=== PATIENT | male | born 1990 | race African-American/Black ===

== ENCOUNTER 2017-03-25 14:44 | Emergency (ER) | payer SELFPAY ==
[~2017-03-25] VITALS: Ht 188 cm; Wt 75.0 kg
[2017-03-25 14:45] VITALS: BP 132/61; PULSE 97; RESP 15; TEMP 97.8; O2SAT 100
--- NOTE | 2017-03-25 16:04 | PD ---
HPI Chief Complaint: Complaint Time Seen by Provider: 16:00 Travel History International Travel<30 days: No Contact w/Intl Traveler<30days: No Traveled to known affect area: No History of Present Illness HPI 27-year-old Afro-[place] male presents to the emergency Department with penile discharge since last night. Patient states he was recently treated at the [facility] department for Trichomonas which he had from his girlfriend. Patient was treated on Monday with 1000 mg of Flagyl by mouth. He states he's continued to have dysuria and discharge. He denies flank pain, testicular pain , rash, nausea, vomiting, or other symptoms. Patient is allergic to shellfish. PFSH Past Medical History Diminished Hearing: No Social History Alcohol Use: No Tobacco Use: No Allergies-Medications (Allergen,Severity, Reaction): Coded Allergies: shellfish derived (Verified Allergy, Unknown, Anaphylaxis, 03/25/17) Review of Systems Except as stated in HPI: all other systems reviewed are Neg General / Constitutional: No: Fever Eyes: No: Visual changes HENT: No: Headaches Cardiovascular: No: Chest Pain or Discomfort Respiratory: No: Shortness of Breath Gastrointestinal: No: Abdominal Pain Genitourinary: Positive: Dysuria, Discharge, No: Flank Pain Musculoskeletal: No: Pain Skin: No Rash Neurologic: No: Weakness Psychiatric: No: Depression Endocrine: No: Polydipsia Hematologic/Lymphatic: No: Easy Bruising Physical Exam Narrative GENERAL: Patient appears no acute distress. SKIN: Warm and dry. Normal color. Normal turgor. HEAD: Atraumatic. Normocephalic. EYES: Pupils equal and round. No scleral icterus. No injection or drainage. ENT: No nasal bleeding or discharge. Mucous membranes pink and moist. Pharynx is clear. Airway is patent. NECK: Trachea midline. Supple. CARDIOVASCULAR: Regular rate and rhythm. RESPIRATORY: No accessory muscle use. Clear to auscultation. Breath sounds equal bilaterally. GASTROINTESTINAL: Abdomen soft, non-tender, nondistended. Hepatic and splenic margins not palpable. No CVA tenderness. Genital exam shows no rash, no tenderness of the testicles or penile shaft. MUSCULOSKELETAL: Extremities without clubbing, cyanosis, or edema. No obvious deformities. NEUROLOGICAL: Awake and alert. No obvious cranial nerve deficits. Motor grossly within normal limits. Five out of 5 muscle strength in the arms and legs. Normal speech. PSYCHIATRIC: Appropriate mood and affect; insight and judgment normal. Data Data Last Documented VS Vital Signs Date Time Temp Pulse Resp B/P (MAP) Pulse Ox O2 Delivery O2 Flow Rate FiO2 03/25/17 14:45 97.8 97 15 132/61 (84) 100 Orders Orders Urinalysis - C+S If Indicated (03/25/17 16:04) Gc And Chlamydia Pcr (03/25/17 16:04) Azithromycin (Zithromax) (03/25/17 16:15) Ceftriaxone Inj (Rocephin Inj) (03/25/17 16:15) Sodium Chloride 0.9% Flush (Ns Flush) (03/25/17 16:15) Lidocaine 1% Inj (50 Ml) (Xylocaine 1% I (03/25/17 16:15) MDM Medical Decision Making Medical Screen Exam Complete: Yes Emergency Medical Condition: Yes Medical Record Reviewed: Yes Differential Diagnosis Exposure to STD. Dysuria. Urinary tract infection. Prostatitis. STD. Narrative Course Patient is medically stable at time of exam. Urinalysis and urine GC chlamydia is ordered. Patient is given 1000 mg Rocephin IM as well as 1000 mg of azithromycin by mouth. Patient will be treated with metronidazole 500 mg 3 times a day 7 days. Patient is to follow-up with his primary care or health department to ensure clearance in the next week. Patient is advised to use safe sex practices and make sure his partners treated and cleared As well. Diagnosis Primary Impression: Penile discharge, without blood Referrals: [facility] Dept. Patient Instructions: Condom Use (DC), General Instructions Additional Instructions: Urinalysis and urine GC chlamydia is ordered. Patient is given 1000 mg Rocephin IM as well as 1000 mg of azithromycin by mouth. Patient will be treated with metronidazole 500 mg 3 times a day 7 days. Patient is to follow-up with his primary care or health department to ensure clearance in the next week. Patient is advised to use safe sex practices and make sure his partners treated and cleared As well. Med/Other Pt SpecificInfo: Prescription(s) given Disposition: 01 DISCHARGE HOME Condition: Stable Don Lopez Mar 25, 2017 16:04
[2017-03-25] MEDS ORDERED: METR500T10 PO (16:14)
[2017-03-25] MEDS ORDERED: SODIUM CHLORIDE 0.9% FLUSH 10 ML FLUSH IVF PRN (16:15)
[2017-03-25] MEDS ORDERED: LIDOCAINE HCL 1% 50 ML VIAL XX ONE (16:15)
[2017-03-25] MEDS ORDERED: AZITHROMYCIN 250 MG TAB PO ONE (16:15)
[2017-03-25 16:37] LABS: BLOOD, URINE NEG (NEG); CALCIUM OXALATE CRYSTALS,URINE MANY /hpf; COMMENT (UR) CULT NOT INDICATED; CULTURE IF INDICATED CULT NOT INDICATED; GLUCOSE,URINE NEG (NEG); KETONE, URINE TRACE mg/dL (NEG); MUCUS URINE MANY /lpf (OCC); NITRITE,URINE NEG (NEG); SQUAMOUS EPITHELIAL CELL URINE <1 /hpf (0-5); URINE COLOR YELLOW (YELLW/STRAW)
[2017-03-25 20:50] LABS: CHLAMYDIA PCR NOT DETECTED (NOT DETECT); NEISSERIA PCR NOT DETECTED (NOT DETECT)
== END 2017-03-25 16:37 | disposition home or self-care (01) ==
LOC: NEPD 14:44
DX: R36.9 Urethral discharge, unspecified (principal); R30.0 Dysuria
CPT/HCPCS: 81001; 87491; 87591; 96372; 99284; J0696

== ENCOUNTER 2017-04-11 11:29 | Emergency (ER) | payer SELFPAY ==
[~2017-04-11 11:29] MED LIST: METR500T10 PO
[2017-04-11 11:30] VITALS: BP 116/59; PULSE 81; RESP 15; TEMP 98.2; O2SAT 98
--- NOTE | 2017-04-11 11:52 | PD ---
HPI Chief Complaint: Complaint Time Seen by Provider: 11:49 Travel History International Travel<30 days: No Contact w/Intl Traveler<30days: No Traveled to known affect area: No History of Present Illness HPI 27-year-old male presents to emergency Department with complaint of penile discharge 3 days. He was seen here in March 25 and treated for penile discharge at that time. He was treated with Rocephin, azithromycin, and was given a prescription for Flagyl for home which he said he filled and took. His symptoms did subside after March 25 and came back 3 days ago. He says his girlfriend was diagnosed with trichomoniasis and they were engaging in sexual intercourse while she was waiting for her results from the health department and after he was already treated. He denies penile pain or swelling. Denies dysuria. Denies testicular pain or swelling. Denies abdominal pain, nausea, vomiting, fevers. No known relieving or aggravating factors. Denies pain. Allergies to shellfish. Has no other medical complaints. No other modifying factors or associated signs and symptoms. PFSH Past Medical History Diminished Hearing: No Social History Alcohol Use: No Tobacco Use: No Allergies-Medications (Allergen,Severity, Reaction): Coded Allergies: shellfish derived (Verified Allergy, Unknown, Anaphylaxis, 04/11/17) Reported Meds & Prescriptions Reported Meds & Active Scripts Active No Active Prescriptions or Reported Medications Review of Systems Except as stated in HPI: all other systems reviewed are Neg Physical Exam Narrative GENERAL: Well-nourished, well-developed black male patient, in no acute distress ; afebrile, nontoxic-appearing SKIN: Warm and dry. HEAD: Atraumatic. Normocephalic. EYES: Pupils equal and round. No scleral icterus. No injection or drainage. ENT: Mucosa pink and moist. Airway patent. NECK: Trachea midline. CARDIOVASCULAR: Regular rate. RESPIRATORY: No accessory muscle use. GASTROINTESTINAL: Flat. MUSCULOSKELETAL: No obvious deformities. No clubbing. No cyanosis. No edema. NEUROLOGICAL: Awake and alert. Oriented 3. No obvious cranial nerve deficits. Motor grossly within normal limits. Normal speech. PSYCHIATRIC: Appropriate mood and affect; insight and judgment normal. Data Data Last Documented VS Vital Signs Date Time Temp Pulse Resp B/P (MAP) Pulse Ox O2 Delivery O2 Flow Rate FiO2 04/11/17 11:30 98.2 81 15 116/59 (78 98 Orders Orders Ed Discharge Order (04/11/17 11:54) MDM Medical Decision Making Medical Screen Exam Complete: Yes Emergency Medical Condition: Yes Medical Record Reviewed: Yes Differential Diagnosis Exposure to trichomoniasis, urethritis, medical clearance Narrative Course This is a 27-year-old male who was seen on March 25 and treated empirically with Rocephin, azithromycin and given a prescription of Flagyl for home for urethritis. I reviewed his record and he was negative for chlamydia and gonorrhea. His girlfriend was evaluated at another facility and was told she had trichomoniasis. He has engaged in sexual intercourse with her since being treated and had onset of penile discharge again 3 days ago. I will prescribe Flagyl for home for exposure to trichomoniasis and urethritis. Instructed patient to follow up with [facility] or [facility]. Flagyl prescribed for home. Instructed patient to follow up with primary care provider. Patient verbalizes understanding and agreement with treatment plan. Patient is medically cleared and stable for discharge. Discussed reasons to return to the emergency department. Patient agrees with treatment plan. The patients vital signs are stable and the patient is stable for outpatient follow- up and treatment. Patient discharged home, stable and in no acute distress. Diagnosis Primary Impression: Exposure to trichomonas Additional Impression: Urethritis Referrals: Primary Care Physician Patient Instructions: General Instructions, Nonspecific Urethritis in Men (ED) , Trichomoniasis (ED) Additional Instructions: Avoid sexual activity until you follow up with her primary care provider Inform all sexual partners within the past 3-6 months that they need to be evaluated and treated Use condoms every time you have sex Follow-up with primary care provider Follow-up with [facility] Return to the emergency department immediately with worsening of symptoms Med/Other Pt SpecificInfo: Prescription(s) given Scripts No Active Prescriptions or Reported Meds Disposition: 01 DISCHARGE HOME Condition: Stable Marilia Diaz Apr 11, 2017 11:52
[2017-04-11] MEDS ORDERED: METR500T10 PO (11:54)
== END 2017-04-11 12:07 | disposition home or self-care (01) ==
LOC: NEPK 11:29
DX: A59.03 Trichomonal cystitis and urethritis (principal)
CPT/HCPCS: 99283